=== PATIENT | female | born 1990 | race Caucasian/White ===

== ENCOUNTER 2018-03-28 03:44 | Emergency (ER) | payer OTHER ==
[~2018-03-28] VITALS: Ht 154.9 cm; Wt 55.0 kg
[~2018-03-28 03:44] MED LIST: IBUP800T23 PO; PRENTAB62 PO
[2018-03-28 03:54] VITALS: BP 110/64; PULSE 95; RESP 18; TEMP 98.2; O2SAT 99
[2018-03-28] MEDS ORDERED: TETANUS/DIPHTHERIA TOXOID ADULT 0.5 ML VIAL IM ONE (04:30)
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
[2018-03-28] MEDS ORDERED: NORC5TAB PO (05:38)
== END 2018-03-28 05:58 ==
LOC: NEPD 03:44
DX: S92.101A Unspecified fracture of right talus, initial encounter for closed fracture (principal); S82.61XA Displaced fracture of lateral malleolus of right fibula, initial encounter for closed fracture; S92.309A Fracture of unspecified metatarsal bone(s), unspecified foot, initial encounter for closed fracture; V43.52XA Car driver injured in collision with other type car in traffic accident, initial encounter; Z23 Encounter for immunization
CPT/HCPCS: 29515; 73610; 73700; 90471; 90714; 99284; E0113